=== PATIENT | male | born 1965 | race Caucasian/White ===

== ENCOUNTER 2024-03-07 11:32 | Emergency (ER) | payer BC, SELFPAY ==
[2024-03-07 11:34] VITALS: BP 154/93
--- NOTE | 2024-03-07 12:14 | ED.GENMED ---
History of Present Illness
General
Chief Complaint: Abdominal Pain
Source: patient
Exam Limitations: none
Time Seen by Provider: 03/07/24 12:13
Nursing documentation reviewed up to this point in time: agreed with
Travel History
Have you had any contact with someone who has COVID-19?: No
Do you have any symptoms of coronavirus? Fever > 100 degrees, chills, cough, shortness of breath, sore throat, loss of taste or smell, muscle aches, or headache?: No
History of Present Illness
History of Present Illness:
58-year-old male with history of HTN, HLD, GERD presents stating he's had gradually increasing LLQ abdominal pain for past 2.5 weeks. Also with increase (3-4 x daily) in BM's w loose non bloody stools with mucus. Pain waxes and wanes was 9/10 this
a.m.,took nothing for pain, now pain 7/10 and declines when pain med offered. Denies n/v. Denies fever. Appetite has been good.
Saw PCP 10 days ago and awaiting insurance approval for CT scan but pain too bad this a.m. and didn't want to wait.
Past History
Past History
ED Past Medical History: GERD, HTN and Hypercholesterolemia
ED Past Surgical History: Tonsilectomy
Social History
Tobacco: Non-smoker
Alcohol: Occasional
Drug: None
Personal:
Living: with family
Employment: Employed
Family History
Family History: Diabetes, Hypertension, Early CAD, CAD and Cancer
Review of Systems
Review of Systems
Allergies reviewed?: Yes
All Other Systems: ROS reviewed and negative except as documented in HPI and ROS
Constitutional: Denies fever
Respiratory: Denies trouble breathing
Cardiac: Denies chest pain
ABD/GI: Reports abdominal pain; Denies nausea, vomiting, diarrhea (looser more frequent stools), constipated, bloody stools, black stools or anorexia
: Denies dysuria or difficulty voiding
Musculoskeletal: Reports no symptoms
Skin: Reports no symptoms
Neurological: Reports no symptoms
Phy Exam
Physical Exam
Physical Exam:
GENERAL: No acute distress. A&Ox3.
CONSTITUTIONAL: Afebrile.
EYES: Clear, conjunctivae normal
ENMT: moist mucus membranes, Pharynx nl
RESPIRATORY: Regular respirations, nonlabored, lungs clear.
CARDIOVASCULAR: Regular rate and rhythm, no murmurs, no rubs.
GI: Soft, rotund, tender epigastric region and left lower quadrant. Normal BS
MUSCULOSKELETAL: Moves with ease. Well perfused.
SKIN: Warm, dry, pink
PSYCH: Normal mood and affect. Well kept, interactive and appropriate
NEUROLOGIC: Awake, alert and oriented. No focal neurological deficits
Course
Orders/Labs/Results
Orders:
Orders
03/07/24 12:30
IV Insert/Care/Rem.- Treatment PRN
0.9% Sodium Chloride 1000 ml [Nss] 1,000 ml IV BOLUS
03/07/24 12:31
CT Abd/Pel (IV only)-DH only Urgent
Comment:
Reason For Exam: mid to LLQ abdominal pain
03/07/24 12:42
Complete Blood Count/With Diff Urgent
Comprehensive Metabolic Panel Urgent
Lipase Urgent
Abnormal Lab Results
03/07/24
12:42
Absolute Monos (auto) 0.9 H 10^3/uL
(0.1-0.6)
Monocytes % 10.9 H %
(1.7-9.3)
BUN 23 H mg/dl
(9-20)
Glucose 116 H mg/dl
(70-99)
03/07/24 12:42
03/07/24 12:42
Vital Signs
Initial and Last Documented VS:
Initial Vital Signs
Temp Pulse Resp BP Pulse Ox
98.1 F 79 16 154/93 99
03/07/24 11:34 03/07/24 11:34 03/07/24 11:34 03/07/24 11:34 03/07/24 11:34
Last Documented Vital Signs
Temp Pulse Resp BP Pulse Ox
98.1 F 64 18 134/89 99
03/07/24 11:34 03/07/24 15:37 03/07/24 15:37 03/07/24 15:37 03/07/24 15:37
MDM/Problems Addressed
Differential Diagnosis Includes:
diverticulitis, colitis
MDM/Problems Addressed:
58-year-old male with history of HTN, HLD, GERD presents stating he's had gradually increasing LLQ abdominal pain for past 2.5 weeks. Also with increase (3-4 x daily) in BM's w loose non bloody stools with mucus. Pain waxes and wanes was 9/10 this
a.m.,took nothing for pain, now pain 7/10 and declines when pain med offered. Denies n/v. Denies fever. Appetite has been good.
Saw PCP 10 days ago and awaiting insurance approval for CT scan but pain too bad this a.m. and didn't want to wait.
Afebrile, NAD
3:20 PM
CBC normal
CMP with no clinically significant abnormality
Lipase normal
CT abdomen pelvis radiology report read: IMPRESSION:
1. Probable mild uncomplicated proximal sigmoid diverticulitis.
Plan: Prescription for Levaquin 500 milligrams daily for 5 days sent to his pharmacy.
\\He has a [facility] doctor he will contact for follow up
*Critical Care Note
Total Time (30-74mins, 75-104mins- exclusive of procedures): Not Applicable
ED Attending Note
-
Portions of this chart may have been created with voice recognition software.� Occasional wrong word or��sound alike� substitutions may have occurred due to the inherent limitations of voice recognition software.
Discharge Plan
Departure
Patient Disposition: Home (Routine Discharge)
Date of Disposition: 03/07/24
Time of Disposition: 15:22
Patient with high blood pressure during this ER visit?: No
Condition: Good
Discharge Problem:
Diverticulitis
Instructions: Clear Liquid Diet, Diverticulitis (DC)
Prescriptions:
New
levofloxacin 500 mg tablet
500 mg PO DAILY 5 Days Qty: 5 0RF
No Action
lisinopril 5 MG tablet
10 mg PO DAILY
esomeprazole magnesium [Nexium] 40 MG capsule,delayed release(DR/EC)
20 mg PO DAILY
atorvastatin 10 MG tablet
10 mg PO QPM
Referrals:
Jessie Guzman MD [Active] - Next open appointment
Aurea Woody PA-C [Family Provider] -
Activity Restrictions/Additional Instructions:
As we discussed, you have mild diverticulitis.
I sent a prescription to your pharmacy for Levaquin 500 mg to take daily for 5 days.
Call the GI doctors office and make next available appointment for follow-up, you may need a colonoscopy.
Interventions
Interventions:
*Risk Screen - Suicide Last Done: 03/07/24 11:34
*General Assessment Last Done: 03/07/24 11:34
*Neglect/Abuse Screening Last Done: 03/07/24 11:34
ED- Fall Risk Assessment Last Done: 03/07/24 15:46
*ED COVID-19 Vaccine History Last Done: 03/07/24 12:07
*Nursing Disposition Last Done: 03/07/24 15:46
[facility]-Dfdq[facility]-Pbftrg[facility] Assessment Last Done: 03/07/24 12:41
Discharge Date and Time
Discharge Date/Time: 03/07/24 15:46
Print Language: ROMANIAN
[2024-03-07] MEDS: NSS 1000 IV (12:42)
[2024-03-07 12:49] LABS: % Eosinophils 5.4 % (0-6); % Immature Granulocytes 0.3 % (0-0.5); % Lymphocytes 36.5 % (20.5-51.1); % Monocytes 10.9 % (1.7-9.3); % Neutrophils 45.9 % (42.2-75.2); Absolute Basophils 0.1 10^3/uL (0-0.2); Absolute Eosinophils 0.4 10^3/uL (0-0.7); Absolute Lymphocytes 2.8 10^3/uL (1.2-3.4); Absolute Monocytes 0.9 10^3/uL (0.1-0.6); Absolute Neutrophils 3.6 10^3/uL (1.4-6.5); Hematocrit 45.9 % (39.0-52.0); Hemoglobin 15.4 g/dL (13.0-18.0); Mean Corp Hgb Conc. 33.6 g/dL (33.0-37.0); Mean Corpuscular Hgb 27.7 pg (27.0-31.0); Mean Corpuscular Volume 82.6 fL (80.0-94.0); Mean Platelet Volume 9.1 fL (7.4-10.4); Nucleated Red Blood Cells % 0 % (-); Platelet Count 211 10^3/uL (130-400); Red Blood Cell Count 5.56 10^6/uL (4.70-6.10); White Blood Cell Count 7.8 10^3/uL (4.8-10.8)
[2024-03-07 13:08] LABS: ALT (SGPT) 49 U/L (0-50); AST (SGOT) 31 U/L (17-59); Albumin 4.4 g/dl (3.5-5.0); Alkaline Phosphatase 101 U/L (38-126); Blood Urea Nitrogen 23 mg/dl (9-20); Calcium 9.5 mg/dl (8.4-10.2); Carbon Dioxide 24 mmol/L (22-30); Chloride 107 mmol/L (98-107); Glucose 116 mg/dl (70-99); Lipase 131 U/L (23-300); Potassium 4.3 mmol/L (3.5-5.1); Sodium 136 mmol/L (135-145); Total Bilirubin 0.8 mg/dl (0.2-1.3); Total Protein 7.2 g/dl (6.3-8.2); eGFR > 60.00
[2024-03-07 15:37] VITALS: BP 134/89
== END 2024-03-07 15:46 | disposition home or self-care (01) ==
LOC: EMR 11:32
PROVIDERS: Registered Nurse; EMERGENCY PHYSICIAN Emergency Medicine; FAMILY PHYSICIAN Physician Assistant Medical
DX: K57.32 Diverticulitis of large intestine without perforation or abscess without bleeding (principal); I10 Essential (primary) hypertension; K21.9 Gastro-esophageal reflux disease without esophagitis; E78.5 Hyperlipidemia, unspecified
CPT/HCPCS: 99285; 96360; 74177; 80053; 83690; 85025; Q9967

== ENCOUNTER 2024-09-13 07:37 | Emergency (ER) | payer BC, SELFPAY ==
[2024-09-13 07:42] VITALS: BP 127/83
[2024-09-13 08:00] VITALS: BMI 32.5
[2024-09-13 08:05] VITALS: BP 143/88
[2024-09-13 08:12] LABS: % Basophils 1.2 % (0-2); % Eosinophils 5.7 % (0-6); % Immature Granulocytes 0.4 % (0-0.5); % Lymphocytes 30.9 % (20.5-51.1); % Monocytes 14.6 % (1.7-9.3); % Neutrophils 47.2 % (42.2-75.2); Absolute Basophils 0.1 10^3/uL (0-0.2); Absolute Eosinophils 0.5 10^3/uL (0-0.7); Absolute Lymphocytes 2.5 10^3/uL (1.2-3.4); Absolute Monocytes 1.2 10^3/uL (0.1-0.6); Absolute Neutrophils 3.8 10^3/uL (1.4-6.5); Hematocrit 40.1 % (39.0-52.0); Mean Corp Hgb Conc. 34.9 g/dL (33.0-37.0); Mean Corpuscular Hgb 27.9 pg (27.0-31.0); Mean Corpuscular Volume 79.9 fL (80.0-94.0); Mean Platelet Volume 9.1 fL (7.4-10.4); Nucleated Red Blood Cells % 0 % (-); Platelet Count 222 10^3/uL (130-400); Red Blood Cell Count 5.02 10^6/uL (4.70-6.10); Red Cell Dist. Width 13.4 % (11.5-14.5); White Blood Cell Count 8.1 10^3/uL (4.8-10.8)
[2024-09-13 08:39] LABS: Troponin I < 0.012 ng/ml
[2024-09-13 08:52] LABS: Alkaline Phosphatase 87 U/L (38-126); Blood Urea Nitrogen 26 mg/dl (9-20); Calcium 9.8 mg/dl (8.4-10.2); Carbon Dioxide 26 mmol/L (22-30); Chloride 107 mmol/L (98-107); Estimated Creatinine Clearance 115 ml/min; Glucose 109 mg/dl (70-99); Potassium 4.5 mmol/L (3.5-5.1); Sodium 141 mmol/L (135-145); Total Bilirubin 0.7 mg/dl (0.2-1.3); Total Protein 6.3 g/dl (6.3-8.2); eGFR > 60.00
[2024-09-13 08:53] LABS: ALT (SGPT) 196 U/L (0-50); AST (SGOT) 134 U/L (17-59)
[2024-09-13 09:00] VITALS: BP 119/80
--- NOTE | 2024-09-13 09:18 | ED.GENMED ---
History of Present Illness
General
Chief Complaint: Chest Pain
Time Seen by Provider: 09/13/24 07:55
History of Present Illness
History of Present Illness:
58-year-old male with history of hyperlipidemia and hypertension presenting for chest pain. Patient reports symptoms started last evening around 8 PM, denies exertional onset. Pain was across his chest and into his back and shoulder blades. Also
reports some radiation to his left upper extremity. Pain has improved since onset. Denies nausea or vomiting, denies diaphoresis. Denies known history of cardiac disease in the past. Does report that he boxes yesterday, however reports that it
was only about 20 pounds. Denies any numbness or tingling to his extremities, however does report some generalized weakness to his lower extremities for the past month. Denies any inciting injury or trauma. Denies recent fever or illness. Denies
additional acute medical complaints
Past History
Past History
ED Past Medical History: GERD, HTN and Hypercholesterolemia
ED Past Surgical History: Tonsilectomy
Social History
Tobacco: Non-smoker
Alcohol: Occasional
Drug: None
Personal:
Living: with family
Employment: Employed
Family History
Family History: Diabetes, Hypertension, Early CAD, CAD and Cancer
Phy Exam
Physical Exam
Physical Exam:
General: Well-appearing, no clinical signs of dehydration, nontoxic and in no acute distress
HEENT: protecting airway
Neck: appears supple
CV: Normal heart rate, regular rhythm, no evidence of cyanosis
Resp: No accessory muscle use, no increased work of breathing, lungs clear to auscultation bilaterally
Abd: Soft and non-distended, no tenderness to palpation
Extremities: No deformities, no swelling, no erythema, pulses and sensation intact
Neuro: alert, no focal neurologic deficit
: deferred
Rectal: deferred
Psych: Normal affect
Skin: Intact
Scores
Heart Score for Chest Pain Patients
STEMI patient?: No
History: Slightly or Non-Suspicious
ECG: Normal
Age: >45 - <65 years
Risk Factors: 1 or 2 Risk Factors
Troponin: </= Normal Limit
Heart Score for Chest Pain Patients: 2
Heart Score Risk: 2.5% MACE over next 6 weeks
Course
Orders/Labs/Results
Orders:
Orders
09/13/24
Electrocardiogram (*1) Stat
Reason for Study: Chest Pain
Comment: DONE NO ORDER ENTERED
09/13/24 07:41
EKG [Electrocardiogram (*1)] Urgent
Reason for Study: Chest Pain
EKG- Treatment ONCE
09/13/24 08:02
CBC/With Diff [Complete Blood Count/With Diff] Urgent
CMP [Comprehensive Metabolic Panel] Urgent
Troponin I Urgent
09/13/24 08:42
CT Chest/abd/pelvis Angio W/wo Urgent
Comment:
Reason For Exam: upper chest pain, r/o dissection
09/13/24 11:16
EKG- Treatment ONCE
Abnormal Lab Results
09/13/24
08:02
MCV 79.9 L fL
(80.0-94.0)
Absolute Monos (auto) 1.2 H 10^3/uL
(0.1-0.6)
Monocytes % 14.6 H %
(1.7-9.3)
BUN 26 H mg/dl
(9-20)
Glucose 109 H mg/dl
(70-99)
AST 134 H U/L
(17-59)
ALT 196 H U/L
(0-50)
09/13/24 08:02
09/13/24 08:02
Vital Signs
Initial and Last Documented VS:
Initial Vital Signs
Temp Pulse Resp BP Pulse Ox
98.0 F 72 16 127/83 98
09/13/24 07:42 09/13/24 07:42 09/13/24 07:42 09/13/24 07:42 09/13/24 07:42
Last Documented Vital Signs
Temp Pulse Resp BP Pulse Ox
97.8 F 68 13 130/91 99
09/13/24 11:40 09/13/24 11:40 09/13/24 09:30 09/13/24 11:35 09/13/24 11:35
MDM/Problems Addressed
MDM/Problems Addressed:
58-year-old male with history of hypertension hyperlipidemia presenting to the emergency department for chest pain since yesterday. Vital signs on arrival are normal.
On exam, patient is well-appearing, no acute distress, resting comfortably. EKG obtained the patient's arrival, nonischemic without evidence of STEMI. Overall benign cardiac and pulmonary exam. However, slightly concerning story. Patient
reporting pain radiating to his back. Aortic catastrophe is a consideration. For this reason plan for laboratory analysis including troponin in the setting of rule out ACS, and also plan for CT chest and abdominal imaging. Patient otherwise
hemodynamically stable. Regarding reported lower extremity weakness, no weakness on examination, 5/5 strength. Distal sensation and pulses intact.
11:25 -patient's labs are unremarkable, undetectable troponin. CT of the chest without aortic pathology. On reassessment, patient remains hemodynamically stable. Feel stable for discharge. Repeat EKG without acute interval changes. However,
given symptom presentation, advise close outpatient cardiology follow-up for stress testing. Patient has stress test in about 15 years. Return precautions discussed and patient verbalized understanding.
*EKG
Interpreted by ED Provider?: Yes
EKG Intrepretation Date: 09/13/24
EKG Intrepretation Time: 09:23
Interpretation: normal
Heart Rate: 66
Rate: normal
Rhythm: sinus
Davidson: normal axis
Interval: normal interval
QRS Pattern: normal QRS
Ischemia: no ischemia
*Critical Care Note
Total Time (30-74mins, 75-104mins- exclusive of procedures): Not Applicable
ED Attending Note
-
Portions of this chart may have been created with voice recognition software.� Occasional wrong word or��sound alike� substitutions may have occurred due to the inherent limitations of voice recognition software.
Discharge Plan
Departure
Patient Disposition: Home (Routine Discharge)
Date of Disposition: 09/13/24
Time of Disposition: 11:18
Patient with high blood pressure during this ER visit?: No
Condition: Good
Discharge Problem:
Chest pain
Instructions: Chest pain - Discharge instructions
Prescriptions:
No Action
lisinopril 5 MG tablet
10 mg PO DAILY
esomeprazole magnesium [Nexium] 40 MG capsule,delayed release(DR/EC)
20 mg PO DAILY
atorvastatin 10 MG tablet
10 mg PO QPM
levofloxacin 500 mg tablet
500 mg PO DAILY 5 Days Qty: 5 0RF
Referrals:
Emery Luna DO [Family Provider] -
Elver Frias MD [Active] - (chest pain)
Activity Restrictions/Additional Instructions:
You were seen in the emergency department for chest pain
You were found to have normal laboratory analysis, EKG, CT imaging of the chest
Please follow-up closely with your primary care physician.
Return to the emergency department for any worsening of your symptoms, or any development of chest pain, difficulty breathing, abdominal pain with persistent vomiting and inability to tolerate food or liquid by mouth (concern for dehydration),
weakness, headache or confusion, fever greater than 100.4, or any additional symptoms that are concerning to you.
Thank you for choosing [facility].
Interventions
Interventions:
*Risk Screen - Suicide Last Done: 09/13/24 11:46
*General Assessment Last Done: 09/13/24 11:46
*Neglect/Abuse Screening Last Done: 09/13/24 11:46
*Nursing Disposition Last Done: 09/13/24 11:46
ED- Cardiac Assessment Last Done: 09/13/24 08:32
Discharge Date and Time
Discharge Date/Time: 09/13/24 11:48
Print Language: SRI LANKAN
[2024-09-13 11:35] VITALS: BP 130/91
== END 2024-09-13 11:48 | disposition home or self-care (01) ==
LOC: EMR 07:37
PROVIDERS: EMERGENCY PHYSICIAN Student in an Organized Health Care Education/Training Program; FAMILY PHYSICIAN Student in an Organized Health Care Education/Training Program
DX: R07.89 Other chest pain (principal); E78.00 Pure hypercholesterolemia, unspecified; I10 Essential (primary) hypertension; K21.9 Gastro-esophageal reflux disease without esophagitis
CPT/HCPCS: 99284; 71275; 74174; 80053; 84484; 85025; 93005; Q9967

== ENCOUNTER → 2025-08-26 08:38 | Outpatient (REF) | payer SELFPAY | LOC: HWRAD 08:38 | PROVIDERS: ATTENDING PHYSICIAN Student in an Organized Health Care Education/Training Program | DX: Z00.00 Encounter for general adult medical examination without abnormal findings (principal); Z82.49 Family history of ischemic heart disease and other diseases of the circulatory system | CPT/HCPCS: 75571 ==

== ENCOUNTER → 2025-09-15 15:56 | Outpatient (REF) | payer BC, SELFPAY | LOC: RAD 15:56 | PROVIDERS: ATTENDING PHYSICIAN Student in an Organized Health Care Education/Training Program; FAMILY PHYSICIAN Student in an Organized Health Care Education/Training Program | DX: M54.2 Cervicalgia (principal) | CPT/HCPCS: 70491; Q9967 ==

== ENCOUNTER → 2025-09-23 09:06 | Outpatient (REF) | payer BC, SELFPAY | LOC: RST 09:06 | PROVIDERS: ATTENDING PHYSICIAN Student in an Organized Health Care Education/Training Program; FAMILY PHYSICIAN Student in an Organized Health Care Education/Training Program | DX: M54.2 Cervicalgia (principal) | CPT/HCPCS: 74230; 92611 ==

== ENCOUNTER 2025-10-08 06:10 | Day surgery (SDC) | payer BC, SELFPAY ==
[2025-10-08 13:10] VITALS: BMI 34.1
[2025-10-08 13:11] VITALS: BP 131/89
[2025-10-08] MEDS: NORMOSOL-R/PLASMALYTE-A 1000 IV (13:27)
[2025-10-08 14:15] VITALS: BP 126/99
[2025-10-08 14:30] VITALS: BP 124/85
[2025-10-08 14:37] VITALS: BP 120/90
== END 2025-10-08 14:50 | disposition home or self-care (01) ==
LOC: SDS 06:10
PROVIDERS: ATTENDING PHYSICIAN Student in an Organized Health Care Education/Training Program
DX: G47.33 Obstructive sleep apnea (adult) (pediatric) (principal)
CPT/HCPCS: 31622

== ENCOUNTER → 2025-11-01 11:13 | Outpatient (REF) | payer BC, SELFPAY | LOC: RAD 11:13 | PROVIDERS: ATTENDING PHYSICIAN Student in an Organized Health Care Education/Training Program; FAMILY PHYSICIAN Student in an Organized Health Care Education/Training Program | DX: R13.10 Dysphagia, unspecified (principal) | CPT/HCPCS: 74221 ==